=== PATIENT | male | born 1985 | race Caucasian/White ===

== ENCOUNTER 2017-04-15 16:02 | Emergency (ER) | payer OTHER ==
[~2017-04-15] VITALS: Ht 61 cm; Wt 89.0 kg
[~2017-04-15 16:02] MED LIST: IBUP800T25 PO
[2017-04-15 16:09] VITALS: Ht 61 cm; Wt 89.0 kg
[2017-04-15] MEDS ORDERED: DIPHTH/TET/ACEL PERTUSS (ADULT) 0.5 ML VIAL IM* ONE (18:00)
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
--- NOTE | 2017-04-15 18:51 | RADRPT ---
PROCEDURE: XR Hand. CLINICAL INDICATION: Fall TECHNIQUE: Three views of the right hand were obtained. COMPARISON: No prior studies are available for comparison. FINDINGS: There is no acute osseous or articular abnormality. No evidence for fracture. Bone mineral density is preserved. The articular surfaces are smooth without evidence of marginal erosions. The soft tis sues are intact without evidence of calcifications. IMPRESSION: 1. No acute osseous abnormality. RPTAT: EE .Cristofer Parada MD, Date Time Electronically viewed and signed by .Cristofer Parada MD, on 04/15/2017 18:50 .d/
--- NOTE | 2017-04-15 18:52 | RADRPT ---
PROCEDURE: XR Wrist. CLINICAL INDICATION: Fall TECHNIQUE: AP, lateral and oblique views of the right wrist were performed. COMPARISON: No prior studies are available for comparison. FINDINGS: There is no acute osseous or articular abnormality. No evidence for fracture. Bone mineral density is preserved. The articular surfaces are smooth without evidence of marginal erosions. Carpal align ment is maintained. The soft tissues are intact without evidence of calcifications. IMPRESSION: 1. No acute osseous abnormality. RPTAT: EE .Cristofer Parada MD, Date Time Electronically viewed and signed by .Cristofer Parada MD, MD on 04/15/2017 18:51 .d/
[2017-04-15] MEDS ORDERED: BACITUD TOP (19:07)
[2017-04-15 19:29] VITALS: BP 128/77; PULSE 66; RESP 20; TEMP 99.1
== END 2017-04-15 19:30 | disposition home or self-care (01) ==
LOC: FTE 16:02
DX: S60.511A Abrasion of right hand, initial encounter (principal); V18.4XXA Pedal cycle driver injured in noncollision transport accident in traffic accident, initial encounter; Z23 Encounter for immunization
CPT/HCPCS: 73110; 73130; 90471; 90715; Z7502

== ENCOUNTER 2019-06-14 09:22 | Day surgery (SDC) | payer OTHER ==
[2019-06-14] VITALS (12 sets, daily range): BP systolic 122–148; BP diastolic 68–96; PULSE 60–87; RESP 13–25; Ht 170.2 cm; Wt 97.5 kg
[~2019-06-14] VITALS: Ht 170.2 cm; Wt 97.5 kg
--- NOTE | 2019-06-14 07:29 | HPN ---
Date/Time of Note Date/Time of Note DATE: 06/14/19 TIME: 07:29 Interval H&P Admission Note Pt. seen H&P reviewed: No system changes HAKAN HARGROVE MD Jun 14, 2019 07:29
[~2019-06-14 09:22] MED LIST changes: +BACITUD TOP; -IBUP800T25 PO; +IBUP800T48 PO
[2019-06-14] MEDS ORDERED: LACTATED RINGER'S 1,000 ML IV SCH (10:30)
[2019-06-14] MEDS ORDERED: POLYMYXIN/BACITRACIN 1L IRRIG ONE (11:09)
[2019-06-14] MEDS ORDERED: ROPIVACAINE 0.5 % 30 ML VIAL ONE ×2 (11:09→11:28)
--- NOTE | 2019-06-14 11:22 | PREAC ---
Date/Time of Note Date/Time of Note DATE: 06/14/19 TIME: 11:22 Anesthesia Eval and Record Evaluation Time Pre-Procedure Interview DATE: 06/14/19 TIME: 11:22 Age 34 Sex male NPO: 8 hrs Preoperative diagnosis knee pain Planned procedure ACL reconstruction Past Medical History Past Medical History: Includes GI: Obesity Surgery & Anesthesia Issues No known issue Meds Anticoagulation: No Beta Gurvinder within 24 hr: No Reason Beta Gurvinder not given: Pt. not on B-Gurvinder Discontinued Scripts Bacitracin* (Bacitracin Oint (UD)*) 1 Applic Oint, 1 APPLIC TOP BID for 5 Days, PKT APPLY TO Prov:JOE HAYNES PA-C 04/15/17 Ibuprofen* (Motrin*) 800 Mg Tab, 800 MG PO Q6, #30 TAB Prov:LIOR CHISHOLM PA-C 08/21/16 Current Medications Lactated Ringer's 1,000 ml @ 25 mls/hr Q24H IV Last administered on 06/14/19at 10:42; Admin Dose 25 MLS/HR; Start 06/14/19 at 10:30 Meds reviewed: Yes Allergies Coded Allergies: No Known Allergy (Unverified , 06/14/19) Allergies Reviewed: Yes Labs/Studies Labs Reviewed: Reviewed by anesthesiologist test: N/A Pre-procedure Exam Last vitals Vital Signs Date Temp Pulse Resp B/P (MAP) Pulse Ox O2 O2 Flow FiO2 Time Delivery Rate 06/14/19 97.6 60 16 148/96 97 Room Air 10:36 (113) Airway: Adequate mouth opening, Adequate thyromental dist Mallampati: Mallampati II Teeth: Normal Lung: Normal Heart: Normal ASA Physical Status ASA physical status: 2 Emergency: None Planned Anesthetic General/MAC: ETT Nerve block: Femoral Pre-operative Attestations Prior to commencing anesthesia and surgery, the patient was re-evaluated, there was verification of: *The patient's identity *The results of appropriate recent lab work and preoperative vital signs *The above evaluation not changing prior to induction *Anesthetic plan, risk benefits, alternative and complications discussed with patient/family; questions answered; patient/family understands, accepts and wishes to proceed. BOYD MOLINA Jun 14, 2019 11:22
[2019-06-14] MEDS ORDERED: LIDOCAINE 2% (SDV) 5 ML INJ ONE (11:27)
[2019-06-14] MEDS ORDERED: DESFLURANE 15 MIN ONE (11:27)
[2019-06-14] MEDS ORDERED: MIDAZOLAM 1 MG/ML 2 ML INJ ONE (11:28)
[2019-06-14] MEDS ORDERED: FENTAnyl 50 MCG/ML VIAL ONE (11:28)
[2019-06-14] MEDS ORDERED: ALBUTEROL 0.083% (NEB) 2.5 MG/3 ML AMP HHN PRN (11:30)
[2019-06-14] MEDS ORDERED: ONDANSETRON 4 MG INJ IV PRN (11:30)
[2019-06-14] MEDS ORDERED: HYDROmorphONE 1 MG/5 ML IV SYRINGE IV PRN ×3 (11:30)
[2019-06-14] MEDS ORDERED: DIPHENHYDRAMINE 50 MG INJ IV PRN (11:30)
[2019-06-14] MEDS ORDERED: MEPERIDINE 25 MG INJ IV PRN (11:30)
[2019-06-14] MEDS ORDERED: FENTAnyl 50 MCG/ML VIAL IV PRN ×3 (11:30)
[2019-06-14] MEDS ORDERED: METOCLOPRAMIDE 10 MG INJ IV PRN (11:30)
[2019-06-14] MEDS ORDERED: ROCURONIUM 50 MG INJ ONE (11:56)
[2019-06-14] MEDS ORDERED: PROPOFOL 20 ML ONE (11:56)
[2019-06-14] MEDS ORDERED: CEFAZOLIN 1 GM INJ ONE (11:56)
[2019-06-14] MEDS ORDERED: SUGAMMADEX SODIUM 200 MG/2 ML VIAL IV ONE (11:56)
[2019-06-14] MEDS ORDERED: SUCCINYLCHOLINE CHLORIDE 100 MG/5 ML SYG IV ONE (11:56)
[2019-06-14] MEDS ORDERED: morphine 2 MG INJ IV PRN (12:00)
[2019-06-14] MEDS ORDERED: KETOROLAC 30 MG INJ IV SCH (12:00)
[2019-06-14] MEDS ORDERED: POLYMYXIN/BACITRACIN 1L IRRIG IRR ONE (12:23)
[2019-06-14] MEDS ORDERED: POVIDONE IODINE 10% 28.4 GM OINT ONE (13:01)
[2019-06-14] MEDS ORDERED: BACITRACIN/POLYMYXIN 28.35 GM OINT TOP ONE (13:27)
--- NOTE | 2019-06-14 13:37 | OPR ---
Date/Time of Note Date/Time of Note DATE: 06/14/19 TIME: 13:27 Operative Report Procedure Date: Jun 14, 2019 Preoperative Diagnosis Right knee ACL tear Postoperative Diagnosis Right knee ACL tear Operation/Procedure Performed Right knee Arthroscopy with ACL reconstruction with tibialis Anterior Allograft Surgeon Hakan Hargrove MD School Janitor Gonzalo Rodriguez MD Anesthesia Type: general, other (Facia Iliacus) Anesthesiologist: BOYD MOLINA Tourniquet Time: 45 min at 250 mm Hg Estimated Blood Loss: minimal Transfusion none Specimen none Grafts/Implants RTI Tibialis Anterior Allograft Mitek Adjustable Loop RigidLoop Mitek 8-10 Bio Intrafix Complications none Pt Condition Post Procedure: stable Disposition: PACU Indications The patient is a 34 year-old male with a prolonged history of Right knee giving way after playing sports He has had continued episodes of instability with catching and clicking over the past several months. The patient has restored their range of motion and is now brought to the operating room for ACL reconstruction, possible partial medial and lateral meniscectomy versus medial and lateral meniscal repair, chondroplasty and debridement. Risk Note: The risks, benefits, and alternatives of surgery were discussed with the patient. The risks included but were not limited to infection, bleeding, damage to vessels and nerves, loss of motion, continued pain, re-tear of the meniscus, deep venous thrombosis, and complications due to anesthesia including nerve injury, myocardial infarction, stroke, , etc. The patient stated understanding of the nature of the surgical procedure and gave written and verbal consent to proceed Procedure Description Patient was met in the preoperative holding area and the correct operative extremity was confirmed with both patient and consent. Patient was given preoperative fascial iliacus block was placed. Patient was brought to the operative theater and placed supine on the operative table. Patient was given general anesthesia and preoperative antibiotics. The Right lower extremity was examined under anesthesia. Range of motion was 0 degrees of extension to 135 degrees of flexion. There was no varus or valgus or posterolateral instability. He had no instability to varus or valgus stress at 0 or 30 degrees. He had a 2+ Fredi and drawer with a positive pivot shift The Right lower extremity was then prepped and draped in the usual fashion. A tourniquet was placed proximally on the thigh over a bias stockinette. A standard anterolateral parapatellar stab wound was created. The knee joint was entered with a blunt-tipped obturator, followed by the 30-degree video arthroscope. An anteromedial portal was established under arthroscopic control. A routine arthroscopic survey was performed. The suprapatellar pouch was unremarkable. The undersurface of the patella was well-preserved. The patella appeared to track centrally within the trochlear groove. There was grade I chondromalacia under the lateral patella facet. The trochlea no chondromalacia. The medial and lateral gutters were inspected and there was a no seen. There was no hypertrophied plica. The popliteal hiatus was entered and was unremarkable. The lateral compartment was entered. The lateral femoral condyle exhibited no chondromalacia and the lateral tibial plateau showed no chondromalacia. There was no chondromalacia adjacent to the notch. There was no chondromalacia along the central aspect of the weight bearing lateral tibial plateau. The lateral meniscus was the probed and found to be stable with no tear The intercondylar notch was visualized. The anterior cruciate ligament was torn from its femoral origin. Posteromedially there was no loose body seen. The posterior cruciate ligament was visualized and appeared intact although slightly strained. The medial compartment was entered. The articular surfaces of the medial femoral condyle showed no chondromalacia and The meniscus was then reprobed and found to be stable. Attention was turned to reconstruction of the anterior cruciate ligament. Following exsanguination with an Esmarch bandage the tourniquet was inflated to 250 mm of mercury. Using a motorized shaver a limited notchplasty was performed, exposing the lateral wall and roof of the notch, identifying the [id number] position. The stump of the anterior cruciate ligament was debrided. A Vector guide was placed intra-articularly between the tibial spines in line with the anterior horn of the lateral meniscus. A Arya wire was then inserted into the knee through a 2 cm incision made over the proximal medial tibia. The incision was deepened through the subcutaneous tissue with subperiosteal dissection achieved. Bleeding points were coagulated with the Bovie electrocautery. The tibialis anterior allograft was prepped to create a size 9.5 graft on both the femoral and tibial side. Tibial drilling was then carried out first with a 6.5 mm followed by a 9.5 mm cylindrical reamer with the guide set at 55 degrees. Via an accessory medial portal, the Beath pin was drilled out the femoral cortex and skin with the knee in hyperflexion. The femoral tunnel was then created, with a spade tip guidewire, Depth-gauging confirmed a condyle length of 38 mm. Then reaming proceeded, with a 9.5 mm drill to a depth of 30 mm. A adjustable rigid loop Mitek button was selected. The graft was inserted intra-articularly and the Mitek button was deployed. The graft was cycled for 20 cycles with 25 pounds of force to pre-load the graft. Tibial fixation was carried out using a 8-10 Bio-IntraFix in 10 degrees of flexion with a posterior drawer. At the completion of surgery the patient had a firm stable Fredi. There was a negative pivot shift. The patient had a 0 firm Fredi and a negative pivot shift. There was no evidence for any roof or lateral wall impingement. The tourniquet was deflated at 45 minutes. The knee was irrigated with two liters of lactated Ringer's solution. Excess fluid was drained. The tibial wounds were then copiously irrigated with bacitracin solution and closed in layers with #0, #2-0 and #3-0 Vicryl. The skin was reapproximated with 3-0 then #4-0 Monocryl. The knee was injected with 20 cc of 0.5% plain ropivacaine. A dry sterile dressing was applied, followed by a bulky bandage and kimmie wrap, insuring no contact with the skin. A postoperative TROM brace was applied locked in full extension. The patient was awakened in the Operating Room and transported to the Recovery Room in satisfactory condition. The patient appeared to tolerate the procedure well. At the completion of surgery the patient had soft compartments, palpable pulses, and brisk capillary refill. There were no complications noted. Patient begin partial weightbearing this coming couple days. With the brace locked in extension he will begin aspirin 81 mg Po qday starting tomorrow. School Janitor surgeon: An assistant merchandise manager Orthopedic Surgeon was needed for this case to assist with positioning of the limb during repair of the injury as well as assisting in fixation of the ACL while holding the arthroscope. Without assistant merchandise manager Orthopedic Surgeon in this case the case would be significantly more complex and longer. HAKAN HARGROVE MD Jun 14, 2019 13:37
--- NOTE | 2019-06-16 09:15 | PAC ---
Date/Time of Note Date/Time of Note DATE: 06/16/19 TIME: 09:15 Post-Anesthesia Notes Post-Anesthesia Note Last documented vital signs Vital Signs Date Temp Pulse Resp B/P (MAP) Pulse Ox O2 O2 Flow FiO2 Time Delivery Rate 06/14/19 97.6 14:51 06/14/19 66 18 135/85 100 Room Air 14:33 (102) 06/14/19 8.0 13:53 Activity: WNL Respiratory function: WNL Cardiovascular function: WNL Mental status: Baseline Pain reasonably controlled: Yes Hydration appropriate: Yes Nausea/Vomiting absent: Yes BOYD MOLINA Jun 16, 2019 09:15
== END 2019-06-14 15:58 | disposition home or self-care (01) ==
LOC: SDS 09:22
PROVIDERS: ATTEND Orthopaedic Surgery
DX: S83.511A Sprain of anterior cruciate ligament of right knee, initial encounter (principal); X58.XXXA Exposure to other specified factors, initial encounter; Y93.67 Activity, basketball
CPT/HCPCS: 29888; 82306; C1713; C1762; J0690; J1885; J2250; J2795; J3010; Z7512; Z7610

== ENCOUNTER 2019-07-31 17:26 | Emergency (ER) | payer OTHER ==
[~2019-07-31] VITALS: Ht 172.7 cm; Wt 98.7 kg
[~2019-07-31 17:26] MED LIST changes: -BACITUD TOP; -IBUP800T48 PO; +MED4DP PO; +MELO7.5T38 PO
[2019-07-31 17:41] VITALS: Ht 172.7 cm; Wt 98.7 kg
[2019-07-31] MEDS ORDERED: KETOROLAC 30 MG INJ IM STA (18:11)
[2019-07-31] MEDS ORDERED: METHYLPREDNISOLONE 125 MG INJ IM ONE (18:30)
[2019-07-31 19:28] VITALS: BP 134/89; PULSE 74; RESP 20
== END 2019-07-31 19:05 | disposition home or self-care (01) ==
LOC: FTE 17:26
DX: M70.51 Other bursitis of knee, right knee (principal); Y93.9 Activity, unspecified
CPT/HCPCS: 36415; 85025; 96372; J1885; J2930; Z7502